=== PATIENT | female | born 1990 | race Caucasian/White ===

== ENCOUNTER 2022-11-13 20:29 | Emergency (ER) | payer OTHER ==
[~2022-11-13] VITALS: Ht 162.6 cm; Wt 72.6 kg
[~2022-11-13 20:29] MED LIST: ALPR0.25 PO
[2022-11-13] MEDS ORDERED: IV NS 0.9% 1,000 ML BAG IV ONE (21:30)
[2022-11-13] MEDS ORDERED: PROCHLORPERAZINE EDISYLATE 10 MG/2 ML VIAL IVP ONE (21:30)
[2022-11-13] MEDS ORDERED: KETOROLAC TROMETHAMINE INJ 30 MG/ML VIAL IV ONE (21:30)
[2022-11-13] MEDS ORDERED: diphenhydrAMINE HCL 50 MG/ML VIAL IV ONE (21:30)
--- NOTE | 2022-11-13 21:35 | NUR ---
iv line established at lac #20g, blood drawn and sent to lab covid and flu swab done, sample sent to lab
[2022-11-13] MEDS ORDERED: PROCHLORPERAZINE EDISYLATE 10 MG/2 ML VIAL ONE (21:37)
[2022-11-13] MEDS ORDERED: diphenhydrAMINE HCL 50 MG/ML VIAL ONE (21:37)
[2022-11-13] MEDS ORDERED: KETOROLAC TROMETHAMINE 15 MG/ML VIAL ONE (21:37)
--- NOTE | 2022-11-13 21:40 | NUR ---
patient signed waiver form
[2022-11-13 21:47] LABS: BASOPHILS # (AUTO) 0.1 K/uL (0.0-0.2); BASOPHILS % (AUTO) 0.8 % (0.0-2.0); HEMATOCRIT 43 % (33-45); HEMOGLOBIN 14.1 g/dL (11.5-14.8); LYMPHOCYTES # (AUTO) 1.9 K/uL (0.8-4.8); LYMPHOCYTES % (AUTO) 30.9 % (20.0-44.0); MEAN CORPUSCULAR HGB CONC 33 g/dl (31.0-36.0); MEAN CORPUSCULAR VOLUME 94 fL (82-100); MONOCYTES # (AUTO) 0.6 K/uL (0.1-1.30); MONOCYTES % (AUTO) 9.1 % (2.0-12.0); NEUTROPHILS # (AUTO) 3.6 K/uL (1.8-8.9); NEUTROPHILS % (AUTO) 57.2 % (43.0-81.0); PLATELET COUNT (AUTO) 235 K/uL (150-450); RED BLOOD CELL COUNT(AUTO) 4.53 MIL/uL (4.0-5.2); WHITE BLOOD COUNT (AUTO) 6.3 K/uL (4.3-11.0)
[2022-11-13 22:00] LABS: CALCIUM, SERUM 8.8 mg/dL (8.5-10.1); CREATININE 0.8 mg/dL (0.6-1.3); POTASSIUM 3.5 mmol/L (3.5-5.1)
[2022-11-13 22:06] LABS: ALBUMIN 3.8 g/dL (3.4-5.0); BILIRUBIN,DIRECT 0.2 mg/dL (0.0-0.2); BILIRUBIN,TOTAL 0.6 mg/dL (0.2-1.0); TOTAL PROTEIN, SERUM 7.3 g/dL (6.4-8.2)
--- NOTE | 2022-11-13 22:22 | NUR ---
URINE COLLECTED, SENT TO LAB
--- NOTE | 2022-11-13 23:47 | NUR ---
Dr Carmona at bedside
[2022-11-13] MEDS ORDERED: IBUP-1957 PO (23:51)
[2022-11-13] MEDS ORDERED: ONDA4TAB11 PO (23:51)
[2022-11-13 23:58] VITALS: BP 150/89
--- NOTE | 2022-11-13 23:58 | NUR ---
Patient discharged to home in stable condition. Written and verbal after care instructions given. Patient verbalizes understanding of instruction.IV removed. Catheter intact and site benign. Pressure and 4x4 applied to site. No bleeding noted.
== END 2022-11-13 23:58 | disposition home or self-care (01) ==
LOC: ER 20:47
DX: R51.9 Headache, unspecified (principal); Z20.822 Contact with and (suspected) exposure to COVID-19; Z88.2 Allergy status to sulfonamides; F41.9 Anxiety disorder, unspecified; Z79.899 Other long term (current) drug therapy
CPT/HCPCS: 99284; 96374; 96375; 96361; 87426; 87804 ×2; 85025; 80048; 80076; 84703; 36415; J0780; J1200; J7030; J1885; C9803

== ENCOUNTER 2023-12-22 21:30 | Emergency (ER) | payer OTHER ==
[~2023-12-22] VITALS: Ht 162.6 cm; Wt 68.9 kg
[~2023-12-22 21:30] MED LIST changes: +IBUP-1957 PO; +ONDA4TAB11 PO
[2023-12-22 22:07] VITALS: TEMP 98.1
[2023-12-22 23:14] LABS: BASOPHILS # (AUTO) 0.1 K/uL (0.0-0.2); BASOPHILS % (AUTO) 0.5 % (0.0-2.0); EOSINOPHILS % (AUTO) 0.1 % (0.0-6.0); HEMATOCRIT 41 % (33-45); HEMOGLOBIN 13.9 g/dL (11.5-14.8); LYMPHOCYTES # (AUTO) 1.4 K/uL (0.8-4.8); LYMPHOCYTES % (AUTO) 10.1 % (20.0-44.0); MEAN CORPUSCULAR HEMOGLOBIN 31 PG (26.0-33.0); MEAN CORPUSCULAR HGB CONC 34 g/dl (31.0-36.0); MEAN CORPUSCULAR VOLUME 91 fL (82-100); MONOCYTES # (AUTO) 0.9 K/uL (0.1-1.30); MONOCYTES % (AUTO) 6.6 % (2.0-12.0); NEUTROPHILS # (AUTO) 11.4 K/uL (1.8-8.9); NEUTROPHILS % (AUTO) 82.7 % (43.0-81.0); PLATELET COUNT (AUTO) 263 K/uL (150-450); RED BLOOD CELL COUNT(AUTO) 4.52 MIL/uL (4.0-5.2); RED CELL DISTRIBUTION WIDTH 13.2 % (11.5-15.0); WHITE BLOOD COUNT (AUTO) 13.8 K/uL (4.3-11.0)
[2023-12-22 23:24] LABS: PREGNANCY TEST URINE QUAL NEGATIVE (NEGATIVE)
[2023-12-22 23:30] LABS: AMPHETAMINE, URINE NEGATIVE (NEGATIVE); BARBITURATE, URINE NEGATIVE (NEGATIVE); BENZODIAZEPINE, URINE NEGATIVE (NEGATIVE); OPIATE, URINE NEGATIVE (NEGATIVE); PHENCYCLIDINE SCREEN,URINE NEGATIVE (NEGATIVE)
[2023-12-22 23:32] LABS: CANNABINOID, URINE POSITIVE (NEGATIVE); COCCAINE, URINE POSITIVE (NEGATIVE)
[2023-12-22 23:43] LABS: CALCIUM, SERUM 8.9 mg/dL (8.5-10.1); CREATININE 0.7 mg/dL (0.6-1.3); POTASSIUM 3.3 mmol/L (3.5-5.1)
[2023-12-22 23:47] LABS: ALBUMIN 3.6 g/dL (3.4-5.0); BILIRUBIN,DIRECT 0.2 mg/dL (0.0-0.2); BILIRUBIN,TOTAL 0.8 mg/dL (0.2-1.0); TOTAL PROTEIN, SERUM 7.2 g/dL (6.4-8.2)
[2023-12-22 23:55] LABS: BILIRUBIN,URINE NEGATIVE (NEGATIVE); BLOOD, URINE 3+ Ery/uL (NEGATIVE); COLOR,URINE YELLOW (YELLOW); KETONES,URINE 2+ mg/dL (NEGATIVE); LEUKOCYTE ESTERASE ,URINE NEGATIVE (NEGATIVE); NITRITE, URINE NEGATIVE (NEGATIVE); PROTEIN,URINE 1+ mg/dl (NEGATIVE); UGLUCOSE NEGATIVE (NEGATIVE); UROBILINOGEN,URINE 0.2 EU/dL (0.2)
[2023-12-22 23:58] LABS: APPEARANCE,URINE HAZY (CLEAR)
[2023-12-23 00:20] LABS: RBC,URINE 21-50 /HPF (0-2)
[2023-12-23] MEDS: LEVETIRACETAM (250 MG) 250 MG TABLET PO ONE (00:20)
[2023-12-23] MEDS: ONDANSETRON 4 MG TAB.RAPDIS PO ONE (00:20)
[2023-12-23] MEDS: TDAP [DIPH/PERTUSSIS/TET] 0.5 ML VIAL IM ONE (00:20)
[2023-12-23 00:21] LABS: ADD URINE CULTURE NO; BACTERIA,URINE Few /HPF (None Seen); SQUAMOUS EPITHELIAL CELL,UR Many /HPF (None Seen)
[2023-12-23] MEDS: MORPHINE SULFATE INJ 2 MG/ML DISP.SYRIN IM ONE (00:21)
[2023-12-23] MEDS ORDERED: LEVE500T9 PO (02:22)
[2023-12-23 02:33] VITALS: BP 139/89; O2SAT 100
== END 2023-12-23 02:34 | disposition home or self-care (01) ==
LOC: ER 21:39
DX: R56.9 Unspecified convulsions (principal); F19.10 Other psychoactive substance abuse, uncomplicated; F41.9 Anxiety disorder, unspecified; R10.2 Pelvic and perineal pain; F17.200 Nicotine dependence, unspecified, uncomplicated; Z79.899 Other long term (current) drug therapy; Z98.890 Other specified postprocedural states; Z60.2 Problems related to living alone; Z88.2 Allergy status to sulfonamides
CPT/HCPCS: 99285; 70450; 70486; 85025; 80048; 80076; 83735; 84703; 36415; 80307; 81001; 96372; 90471; 90715; Q0162; J2270